=== PATIENT | male | born 1980 | race Two or more races ===

== ENCOUNTER 2021-12-02 12:04 | Emergency (ER) | payer OTHER ==
[~2021-12-02] VITALS: Ht 188 cm; Wt 81.6 kg
--- NOTE | 2021-12-02 12:12 | NUR ---
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 PT STATED HE HAD A 102 FEVER AND TOOK TYLENOL SCREW DOWN. AFEBRILE. HX HTN AND TESTICULAR STONES. DENIES HX OF KIDNEY STONES. AAOX4, BREATHING EVEN AND UNLABORED, PULSES 2+ BILATERALLY, SKIN WARM TO TOUCH. ON MONITOR. BP 163/122. WILL CONTINUE TO MONITOR.
--- NOTE | 2021-12-02 12:14 | NUR ---
Denies headache, blurry vision. Reports hx of high blodo pressure, states did not take his xanax today, and usually his BP is lower when takes it.
--- NOTE | 2021-12-02 12:25 | NUR ---
BLOOD SAMPLE OBTAINED AND SENT TO LAB
[2021-12-02] MEDS ORDERED: ONDANSETRON HCL/PF 4 MG/2 ML VIAL ONE (12:48)
--- NOTE | 2021-12-02 12:48 | NUR ---
XRAY AT BEDSIDE
[2021-12-02 12:54] LABS: BASOPHILS % (AUTO) 0.5 % (0.0-2.0); EOSINOPHILS % (AUTO) 4.3 % (0.0-6.0); HEMATOCRIT 38 % (39-51); LYMPHOCYTES # (AUTO) 1.6 K/uL (0.8-4.8); LYMPHOCYTES % (AUTO) 23.8 % (20.0-44.0); MEAN CORPUSCULAR HGB CONC 34 g/dl (31.0-36.0); MEAN CORPUSCULAR VOLUME 82 fL (80-96); MONOCYTES # (AUTO) 0.7 K/uL (0.1-1.30); MONOCYTES % (AUTO) 9.5 % (2.0-12.0); NEUTROPHILS # (AUTO) 4.3 K/uL (1.8-8.9); NEUTROPHILS % (AUTO) 61.9 % (43.0-81.0); PLATELET COUNT (AUTO) 258 K/uL (150-450); WHITE BLOOD COUNT (AUTO) 6.9 K/uL (4.3-11.0)
[2021-12-02] MEDS ORDERED: IV NS 0.9% 1,000 ML BAG IV ONE (13:00)
[2021-12-02] MEDS ORDERED: ONDANSETRON HCL/PF - ER 4 MG/2 ML VIAL IV ONE (13:00)
--- NOTE | 2021-12-02 13:18 | NUR ---
PT AMBULATED TO RESTROOM
[2021-12-02 13:22] LABS: POTASSIUM 3.6 mmol/L (3.5-5.1)
[2021-12-02 13:27] LABS: ALBUMIN 4.2 g/dL (3.4-5.0); BILIRUBIN,DIRECT 0.2 mg/dL (0.0-0.2)
[2021-12-02] MEDS ORDERED: MORPHINE SULFATE INJ 2 MG/ML DISP.SYRIN IV ONE (14:00)
[2021-12-02] MEDS ORDERED: CLONIDINE HCL 0.1 MG TABLET PO ONE (14:00)
--- NOTE | 2021-12-02 14:06 | NUR ---
PT TAKEN TO CT VIA [facility]
--- NOTE | 2021-12-02 14:35 | NUR ---
PT REFUSED MORPHINE. Addendum: 12/02/21 at 1436 by TRISTAN MD [facility]
[2021-12-02] MEDS ORDERED: CLONIDINE HCL 0.1 MG TABLET ONE (14:38)
[2021-12-02] MEDS ORDERED: KETOROLAC TROMETHAMINE INJ 30 MG/ML VIAL IV ONE (16:00)
[2021-12-02 16:37] LABS: BILIRUBIN,URINE NEGATIVE (NEGATIVE); COLOR,URINE YELLOW (YELLOW); LEUKOCYTE ESTERASE ,URINE NEGATIVE (NEGATIVE); NITRITE, URINE NEGATIVE (NEGATIVE); PH,URINE 8.5 (5.0-8.0); PROTEIN,URINE NEGATIVE (NEGATIVE); UGLUCOSE NEGATIVE (NEGATIVE); UROBILINOGEN,URINE 0.2 EU/dL (0.2)
[2021-12-02] MEDS ORDERED: DOCU-141 PO (16:48)
[2021-12-02] MEDS ORDERED: POLY17PO4 PO (16:48)
--- NOTE | 2021-12-02 16:55 | NUR ---
[facility] in [facility] - 12/02/21 at 1725 by TRISTAN Patient discharged to home in stable condition. Written and verbal after care instructions given. Patient verbalizes understanding of instruction.
--- NOTE | 2021-12-02 16:55 | NUR ---
IV removed. Catheter intact and site benign. Pressure and 4x4 applied to site. No bleeding noted.
--- NOTE | 2021-12-02 16:55 | NUR ---
Patient discharged to home in stable condition. Written and verbal after care instructions given. Patient verbalizes understanding of instruction. Pt denies headache, blurry vision. Steady gait.
[2021-12-02 17:22] VITALS: BP 164/121
== END 2021-12-02 16:55 | disposition home or self-care (01) ==
LOC: ER 12:20
DX: R10.11 Right upper quadrant pain (principal); K59.00 Constipation, unspecified; N20.0 Calculus of kidney; F11.10 Opioid abuse, uncomplicated; R11.2 Nausea with vomiting, unspecified; I10 Essential (primary) hypertension; Z90.89 Acquired absence of other organs; Z88.8 Allergy status to other drugs, medicaments and biological substances
CPT/HCPCS: 36415; 71045; 74176; 80048; 80076; 81003; 83605; 83690; 85025; 87040 ×2; 93005; 96361; 96374; 96375; 99285; J1885; J2405; J7030